=== PATIENT | male | born 1955 | race Caucasian/White ===

== ENCOUNTER 2021-04-12 16:16 | Emergency (ER) | payer OTHER ==
[~2021-04-12] VITALS: Ht 170.2 cm; Wt 116.8 kg
[2021-04-12 21:00] VITALS: BP 140/98
[2021-04-13] MEDS ORDERED: GLIP5 PO (05:46)
[2021-04-13] MEDS ORDERED: METF-960 PO (05:46)
[2021-04-13] MEDS ORDERED: LISI-892 PO (05:46)
[2021-04-13] MEDS ORDERED: DABI75CA3 PO (05:46)
== END 2021-04-12 21:04 | disposition home or self-care (01) ==
LOC: EMS 16:16
DX: R45.851 Suicidal ideations (principal); I10 Essential (primary) hypertension; E11.9 Type 2 diabetes mellitus without complications
CPT/HCPCS: 99285; Z7502